=== PATIENT | female | born 1950 | race Caucasian/White ===

== ENCOUNTER 2016-10-12 19:46 | Emergency (ER) | payer MEDICARE, OTHER ==
[~2016-10-12] VITALS: Ht 157.5 cm; Wt 109.1 kg
[~2016-10-12 19:46] MED LIST: AMBIEN CR 12.12.5 MG PO; ANTIVERT 25MG25 MG PO; CALCIUM1 CAP PO; CENTRUM1 TAB PO; COLACE 100100 MG/CAP PO; DAZIDOX10 MG PO; DDAVP TAB0.2 MG PO; DDAVP0.1 MG PO; EVISTA 60MG60 MG/TAB PO; FLEXERIL 1010 MG/TAB PO; GLUCOSAMINE & C1 CA1 PO; LEVOXYL0.175 MG PO; LIPITOR 40MG TA40 MG PO; LIPITOR20 MG PO; NORCO 325 MG-51 TAB PO; NORFLEX 10100 MG/TAB PO; NUCYNTA50 MG PO; PROTONIX 40MG T40 MG PO; PROTONIX20 MG PO; SYNTHROID 0.0.025 MG PO; SYNTHROID0.175 MG PO; TEGRETOL 1100 MG/TAB PO; ZOFRAN 4MG T4 MG/TAB PO; ZOFRAN ODT4 MG PO; ZOLOFT 100MG100 MG PO
[2016-10-12 19:52] VITALS: TEMP 97.1
[2016-10-12 20:14] LABS: BASO % 0.4 % (0.0-2.0); EOS # 0.2 (0.0-0.7); EOS % 2.1 % (0-4.0); GRAN % 62.4 % (42.2-75.2); HEMATOCRIT 37.6 % (37.0-47.0); LYMPH # 2.5 (1.2-3.4); LYMPH % 26.2 % (20.0-51.0); MEAN CELL VOLUME 86 fl (80.0-100.0); MEAN CORPUSCULAR HEMOGLOBIN 30 pg (27.0-31.0); MEAN CORPUSCULAR HGB CONC 35 g/dl (33.0-37.0); MONO # 0.8 (0.1-0.6); MONO % 8.6 % (1.7-9.3); PLATELET COUNT 214 K/mm3 (130-400); RED BLOOD COUNT 4.35 M/mm3 (4.10-5.30); REDCELL DISTRIBUTION WIDTH-CV 12.2 % (11.5-14.5); WHITE BLOOD COUNT 9.6 K/mm3 (4.8-10.8)
[2016-10-12 20:19] LABS: PROTHROMBIN TIME 11.3 SECONDS (9.7-12.8)
[2016-10-12 20:22] LABS: PARTIAL THROMBOPLASTIN TIME 31.3 SECONDS (26.0-37.0)
[2016-10-12 20:24] LABS: ADJUSTED CALCIUM 8.8 mg/dL (8.4-10.2); ALANINE AMINOTRANSFERASE 27 U/L (9-52); ALBUMIN 4.1 gm/dL (3.5-5.0); ALKALINE PHOSPHATASE 91 U/L (50-136); ANION GAP 11 mmol/L (7-16); BILIRUBIN,TOTAL 0.6 mg/dL (0.0-1.0); BLOOD UREA NITROGEN 13 mg/dL (7-17); CALCIUM 8.9 mg/dL (8.4-10.2); CARBON DIOXIDE 27 mmol/L (22-30); CHLORIDE 92 mmol/L (98-107); CREATININE, serum 0.57 mg/dL (0.52-1.25); GLUCOSE 97 mg/dL (74-106); POTASSIUM 3.7 mmol/L (3.4-5.0); SODIUM 129 mmol/L (137-145); TOTAL PROTEIN 7.1 gm/dL (6.4-8.2)
[2016-10-12 20:35] LABS: TROPONIN-I < 0.012 ng/mL (0.000-0.034)
[2016-10-12] MEDS ORDERED: NITROSTAT0.4 MG/TAB SL (23:10)
[2016-10-12 23:57] VITALS: BP 121/75; PULSE 80
== END 2016-10-12 23:57 | disposition home or self-care (01) ==
LOC: COL.ER 19:46
PROVIDERS: Emergency Medicine
DX: R07.9 Chest pain, unspecified (principal); Z82.49 Family history of ischemic heart disease and other diseases of the circulatory system; E78.5 Hyperlipidemia, unspecified; R51 Headache
CPT/HCPCS: J2270; J2765

== ENCOUNTER 2016-12-07 07:35 | Day surgery (SDC) | payer MEDICARE, OTHER ==
[~2016-12-07] VITALS: Ht 157.6 cm; Wt 105.0 kg
[2016-12-07] VITALS (8 sets, daily range): BP systolic 107–159; BP diastolic 72–94; PULSE 67–80; TEMP 98.3
[~2016-12-07 07:35] MED LIST changes: +NITROSTAT0.4 MG/TAB SL
[2016-12-07] MEDS ORDERED: ASPIRIN E.C. 8181 MG PO (08:19)
[2016-12-07 08:22] LABS: HEMATOCRIT 38.4 % (37.0-47.0); HEMOGLOBIN 12.9 g/dl (12.5-16.0); MEAN CELL VOLUME 88 fl (80.0-100.0); MEAN CORPUSCULAR HEMOGLOBIN 30 pg (27.0-31.0); MEAN CORPUSCULAR HGB CONC 34 g/dl (33.0-37.0); MEAN PLATELET VOLUME 10.8 fl (7.4-10.4); PLATELET COUNT 211 K/mm3 (130-400); RED BLOOD COUNT 4.35 M/mm3 (4.10-5.30); REDCELL DISTRIBUTION WIDTH-CV 12.5 % (11.5-14.5); WHITE BLOOD COUNT 7.5 K/mm3 (4.8-10.8)
[2016-12-07 08:24] LABS: INR 1.1 (0.8-3.0); PROTHROMBIN TIME 12.1 SECONDS (9.7-12.8)
[2016-12-07] MEDS ORDERED: MOBIC15 MG PO (08:27)
[2016-12-07 08:45] LABS: CALCIUM 9.1 mg/dL (8.4-10.2); CREATININE, serum 0.57 mg/dL (0.52-1.25)
[2016-12-07] MEDS ORDERED: COZAAR 50MG50 MG/TAB PO (12:08)
== END 2016-12-07 13:14 | disposition home or self-care (01) ==
LOC: COL.CAR 07:35
PROVIDERS: Internal Medicine Cardiovascular Disease
DX: I20.0 Unstable angina (principal); I42.8 Other cardiomyopathies; Z85.3 Personal history of malignant neoplasm of breast; E07.9 Disorder of thyroid, unspecified; Z90.13 Acquired absence of bilateral breasts and nipples; Z92.21 Personal history of antineoplastic chemotherapy; Z92.3 Personal history of irradiation; G47.33 Obstructive sleep apnea (adult) (pediatric); G93.89 Other specified disorders of brain; I65.21 Occlusion and stenosis of right carotid artery; E78.5 Hyperlipidemia, unspecified; Z82.49 Family history of ischemic heart disease and other diseases of the circulatory system
CPT/HCPCS: C1769; J1644; J2250; J3010; Q9967